=== PATIENT | female | born 1975 | race Caucasian/White ===

== ENCOUNTER 2020-12-12 13:34 | Emergency (ER) | payer MEDICAID ==
[~2020-12-12] VITALS: Ht 154.9 cm; Wt 71.2 kg
[2020-12-12 13:50] VITALS: BP 146/77
--- NOTE | 2020-12-12 13:56 | NUR ---
PT AMBULATED TO BED 9 WITH EVEN STEADY GAIT
--- NOTE | 2020-12-12 13:58 | NUR ---
JAYLEN HDEZ AT BEDSIDE
--- NOTE | 2020-12-12 13:59 | NUR ---
45 Y/O FEMALE C/O SORETHROAT X8DAYS, PT FEELS "DUST STUCK IN THROAT". PT STATES SHE RECENTLY SAW PCP X2DAYS VIA TELEHEALTH, WAS PRESCRIBED AMOXICILLIN 500MG Q12H FOR URINE INFECTION. DENIES N/V, DENIES FEVER/CHILLS. PT DENIES PAIN. PT HAS NONPRODUCTIVE COUGH. THROAT APPEARS CLEAR WITH NO REDNESS. PT IS A/O X4 WITH EVEN AND UNLABORED RESPIRATIONS. PT IS [place] SPEAKING DENIES PMH NKA
[2020-12-12] MEDS ORDERED: CETI1TAB5 PO (14:09)
[2020-12-12] MEDS ORDERED: ALBU0.0912 IH (14:09)
[2020-12-12] MEDS ORDERED: FLUT0.0560 NS (14:09)
--- NOTE | 2020-12-12 14:28 | NUR ---
Patient discharged with v/s stable. Written and verbal after care instructions given and explained. Patient alert, oriented and verbalized understanding of instructions. Ambulatory with steady gait. All questions addressed prior to discharge. ID band removed. Patient advised to follow up with PMD. Rx of albuterol sulfate, cetirizine HCL/pseudoephedrine, and fluticasone propionate given. Patient educated on indication of medication including possible reaction and side effects. Opportunity to ask questions provided and answered.
[2020-12-12 14:29] VITALS: BP 146/77
== END 2020-12-12 14:24 | disposition home or self-care (01) ==
LOC: MED 13:34
DX: J30.9 Allergic rhinitis, unspecified (principal); Z79.899 Other long term (current) drug therapy
CPT/HCPCS: 99283